=== PATIENT | female | born 1965 | race Caucasian/White ===

== ENCOUNTER 2017-12-13 11:08 | Day surgery (SDC) | payer OTHER ==
[2017-12-13] MEDS ORDERED: MIDAZOLAM 1 MG/ML 2 ML INJ ×2 (14:06→14:07)
[2017-12-13] MEDS ORDERED: FENTAnyl 50 MCG/ML VIAL (14:07)
== END 2017-12-13 15:03 | disposition home or self-care (01) ==
LOC: GIL 11:08
DX: Z12.11 Encounter for screening for malignant neoplasm of colon (principal); K63.89 Other specified diseases of intestine; I10 Essential (primary) hypertension
CPT/HCPCS: 45378